=== PATIENT | female | born 1960 | race Caucasian/White ===

== ENCOUNTER 2025-07-03 18:43 | Emergency (ER) | payer BC, MEDICARE, SELFPAY ==
--- OUTSIDE RECORDS SUMMARY | 2025-07-03 18:54 | XMS_ITS | Encounter Summary ---
Author Organization [facility] Healthcare Address [address] [place] [address] Care Team Providers Care Building Custodian Name Role Phone Lloyd Powell MD Primary Care Provider +1- [phone] Bing Gupta RN Unavailable Unavailab le Reason for Visit * Reason Onset Date Comments Prior Auth 08/09/2019 Pregabalin 200mg Approved Encounter Details Date Type Department Care Team (Late st Contact Info) Description 08/09/2019 Telephone [facility] [place] [facility] [address] [facility] [address] [place] [address] Chon Ni MD [address] [facility] [phone] [place] [address] Prior Auth (Pregabalin 200mg Approved) Social History Tobacco Use Types Packs/Day Years Used Date Smoking Tobacco: Never Smokeless Tobacco: Never Alcohol Use Standard Drinks/Week Comments Not Currently 0 (1 standard drink = 0.6 oz pur e alcohol) Comments No Sex and Gender Information Value Date Recorded Sex Assigned at Not on file Legal Sex Female 11:41 PM FACTORY HELPER Gender Identity Female 12/29/2021 2:47 PM FACTORY HELPER Sexual Orientation Straight 12/29/2021 2: 47 PM FACTORY HELPER documented as of this encounter Plan of Treatment Not on file documented as of this encounter Goals Goal Patient Goal Type Associated Problems Recent Progress Patient-Stated? Author CCM Chronic Pain Care Plan Chronic Care Management Worsening( 3:17 PM CDT) No Anabel Rosas NP Note: Problem: Chronic Pain Goals: 1. Minimize further functional decline 2. Maximize quality of life 3. Control pain Strategies: - Activity/exercise program recommendation - Conservative stepwise pain medicine strategy with multi-disciplinary approach - Recommend healthy lifestyle strategies and compensatory methods as needed documented as of this encounter Visit Diagnoses Not on filedocumented in this encounter Care Teams Building Custodian Relationship Specialty Start Date End Date Lloyd Powell MD [facility] [place] [address] PCP - General 10/20/17 Bing Gupta, RN Registered Nurse 12/06/19 documented as of this encounter
--- OUTSIDE RECORDS SUMMARY | 2025-07-03 18:54 | XMS_ITS | Encounter Summary ---
Author Organization [facility] Healthcare Address [address] [place] [address] Care Team Providers Care Insurance Follow Up Rep Name Role Phone Lloyd Powell MD Primary Care Provider +1- [phone] Bing Gupta RN Unavailable Unavailab le Encounter Details Date Type Department Care Team (Late st Contact Info) Description 03/10/2022 Telephone [facility] [place] [facility] [address] [facility] [address] [place] [address] Chon Ni MD [address] [facility] [id number] [place] [address] Social History Tobacco Use Types Packs/Day Years Used Date Smoking Tobacco: Never Smokeless Tobacco: Never Alcohol Use Standard Drinks/Week Comments Not Currently 0 (1 standard drink = 0.6 oz pur e alcohol) AUDIT-C Answer Date Recorded Q1: How often do you have a drink containing alc ohol? Never 10/14/2021 Average Number of Drinks Not on file 021 Frequency of Binge Drinking Not on file 06/2021 Comments No Sex and Gender Information Value Date Recorded Sex Assigned at Not on file Legal Sex Female 11:41 PM SALES REPRESENTATIVE JEWELRY Gender Identity Female 12/29/2021 2:47 PM SALES REPRESENTATIVE JEWELRY Sexual Orientation Straight 12/29/2021 2: 47 PM SALES REPRESENTATIVE JEWELRY documented as of this encounter Plan of [...] on filedocumented in this encounter Care Teams Insurance Follow Up Rep Relationship Specialty Start Date End Date Lloyd Powell MD [address] [place] [address] [place] [address] PCP - General 10/20/17 Bing Gupta, RN Registered Nurse 12/06/19 documented as of this encounter
--- OUTSIDE RECORDS SUMMARY | 2025-07-03 18:54 | XMS_ITS | Encounter Summary ---
Author Organization [facility] Healthcare Address [address] [place] [address] Care Team Providers Care Head Soft Sugar Operator Name Role Phone Lloyd Powell MD Primary Care Provider +1- [phone] Bing Gupta RN Unavailable Unavailab le Reason for Visit * Reason Onset Date Comments Med Refill 02/17/2022 Encounter Details Date Type Department Care Team (Late st Contact Info) Description 02/17/2022 Telephone [facility] [place] [facility] [address] [facility] [address] [place] [address] Chon Ni MD [address] [facility] [phone] [place] [address] Med Refill Social History Tobacco Use Types Packs/Day Years [...] on file 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
--- OUTSIDE RECORDS SUMMARY | 2025-07-03 18:54 | XMS_ITS | Encounter Summary ---
Author Organization [facility] Healthcare Address [address] [place] [address] Care Team Providers Care Sales Planning Manager Name Role Phone Lloyd Powell MD Primary Care Provider +1- [phone] Bing Gupta RN Unavailable Unavailab le Reason for Visit * Reason Onset Date Comments Prior Auth 11/06/2019 Hydromorphone 2m g Encounter Details Date Type Department Care Team (Late st Contact Info) Description 11/06/2019 Telephone [facility] [place] [facility] [address] [facility] [address] [place] [address] Chon Ni MD [address] [facility] [address] [facility] [phone] [place] [address] Prior Auth (Hydromorphone 2mg) Social History Tobacco Use Types Packs/Day Years Used Date Smoking Tobacco: Never Smokeless Tobacco: Never Alcohol Use Standard Drinks/Week Comments Not Currently 0 (1 standard drink = 0.6 oz pur e alcohol) Comments No Sex and Gender Information Value Date Recorded Sex Assigned at Not on file Legal Sex Female 11:41 PM JEWELRY SALES Gender Identity Female 12/29/2021 2:47 PM JEWELRY SALES Sexual Orientation Straight 12/29/2021 2: 47 PM JEWELRY SALES documented as of this encounter Plan of [...] on filedocumented in this encounter Care Teams Sales Planning Manager Relationship Specialty Start Date End Date Lloyd Powell MD [address] [place] [address] [address] [place], [place] [id number] PCP - General 10/20/17 Bing Gupta, RN Registered Nurse 12/06/19 documented as of this encounter
--- OUTSIDE RECORDS SUMMARY | 2025-07-03 18:55 | XMS_ITS | Clinical Summary ---
Author Organization [facility] Address [address] [place] [address] Care Team Providers Care Policy Change Clerk Name Role Phone Lloyd Powell MD Primary Care Provider [phone] Bing Gupta RN Unavailable Unavailab le Allergies Active Allergy Reactions Criticality Noted Date Comments Amoxicillin Stomach upset Reaction: GI upset, Ampicillin Stomach upset Reaction: GI upset, Levofloxacin Stomach upset Low 04/01/2020 Reaction: GI upset, Note: Imported from external source. Penicillins Hives High Reaction: Hives, Medications traZODone (DESYREL) 50 mg tabletIndications: usually takes 50 mg, occasionally takes up to 300 mg (6) every evening Take 6 tablets (300 mg total) by mouth nightly Active simvastatin (ZOCOR) 40 mg tablet daily. Active chlordiazePOXIDE (LIBRIUM) 10 mg capsule 1 tab BID Active acetaminophen (TYLENOL) 500 mg tablet as needed Active valACYclovir (VALTREX) 500 mg tablet PRN Herpes 4 05/22/20 18 Active buPROPion XL (WELLBUTRIN XL) 300 mg 24 hr tablet bupropion hydrochloride er (xl) 300 mg tb24 Active buPROPion XL (WELLBUTRIN XL) 150 mg 24 hr tablet bupropion hydrochloride er (xl) 150 mg tb24 Active naloxone (NARCAN) 4 mg/actuation spray,non-aerosol 02/13/20 23 Active losartan-hydroCHLO ROthiazide (HYZAAR) 100-12.5 mg per tablet losartan 100 mg-hydrochloroth iazide 12.5 mg tablet TAKE 1 TABLET BY MOUTH EVERY DAY Active pregabalin (LYRICA) 200 mg capsuleIndications :Neuralgia Take 1 capsule (200 mg total) by mouth 3 (three) times a day 90 capsule 5 01/22/[address] (CYMBALTA) 30 mg capsuleIndications :Anxiety with Depression,Chronic Musculoskeletal Pain,Neuropathic Pain Take 2 capsules (60 mg total) by mouth daily 180 capsule 2 01/23/20 25 Active levomefolate calcium 15 mg tablet Take 1 tablet by mouth daily 03/21/20 25 Active vitamin b complex tablet Take 1 tablet by mouth daily Active nystatin powderIndications: cutaneous candidiasis Apply topically 4 (four) times a day 15 g 3 05/23/20 25 026 Active HYDROmorphone (DILAUDID) 2 mg tabletIndications: severe chronic pain requiring long-term opioid treatment Take 1 tablet (2 mg total) by mouth 3 (three) times a day as needed for pain 90 tablet 06/04/20 25 Active HYDROmorphone (DILAUDID) 2 mg tabletIndications: severe chronic pain requiring long-term opioid treatment Take 1 tablet (2 mg total) by mouth 3 (three) times a day as needed for pain 90 tablet 05/06/20 25 025 Disconti nued(Reo rder) Active Problems Problem Noted Date Diagnosed Date Anxiety 03/06/2025 Tremor 11/29/2024 Spondylosis of lumbar region without myelopathy or radiculopathy 01/31/2024 Infection of tooth 09/11/2023 Menorrhagia 07/18/2023 Vaginitis 07/18/2023 Malignant essential hypertension 04/05/2023 Ilioinguinal neuralgia of right side 01/18/2023 Lumbago 11/05/2021 Right lower quadrant pain 08/14/2021 Carpal tunnel syndrome on right 03/05/2020 Symptoms involving urinary system 08/16/2019 Suprapubic pain 08/16/2019 Left lower quadrant pain 08/16/2019 Perimenopausal disorder 08/16/2019 Menopausal flushing 08/16/2019 Genital herpes simplex 08/16/2019 Depressive disorder 08/16/2019 Alopecia 08/16/2019 Chronic pelvic pain in female 08/16/2019 Encounter for specialized medical examination 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 Ni 2004 - based on failed medications Oral morphine equivalent: 24 mg per day Benzo: librium 10 mg BID Other: wellbutrin 450 mg , sunosi 75 mg prn , she has mild cognitive impairment - Storage: she is told to lock up Plan: 2 months - encourage gradual opioid dose reduction as possible Urine drug screen [facility] 03/25/17 - consistent with prescribed hydromorphone (prescribed chlordiazepoxide) Urine drug screen [facility] 09/01/18 - consistent with prescribed hydromorphone (prescribed chlordiazepoxide) oxidant screen positive. Urine Drug screen [facility] 01/03/19 - consistent with prescribed hydromorphone, benzodiazepine screen negative/confirmed (oxidants negative) Urine Drug Screen [facility] 12/06/19 - consistent with prescribed hydromorphone, Benzodiazepines positive -rx'd librium Urine Drug Screen [facility] 01/27/21 - consistent with prescribed hydromorphone, Benzodiazepines positive -rx'd librium Urine Drug Screen [facility] 08/24/22 - consistent with prescribed hydromorphone, Benzodiazepines positive -rx'd librium Urine drug screen [facility] 07/21/23 - consistent with prescribed hydromorphone , Benzodiazepine positive - rx'd librium Urine drug screen [facility] 05/15/24 - confirmed hydromorphone , amphetamines negative , confirmed benzo. Urine drug screen [facility] 05/23/25 - confirmed hydromorphone , amphetamine negative . Benzo screen positive as expected she takes librium Sciatica of right side 01/03/2019 Displacement of lumbar intervertebral disc 01/03 Kidney stone 11/22/2018 Medication monitoring encounter 05/25/2018 Psychophysiological insomnia 05/19/2017 Meralgia paresthetica 04/28/2013 Pain in pelvis 04/28/2013 Hyperlipidemia 01/17/2013 Migraine headache 01/17/2013 Chronic pain 01/10/2013 Generalized anxiety disorder 01/10/2013 Radiculopathy 01/10/2013 Major depression, recurrent 01/10/2013 Peripheral neuropathy 01/10/2013 07/21/2023 History of anxiety 11/25/2009 Neuralgia 11/25/2009 Recurrent major depressive disorder 11/25/2009 Resolved Problems Problem Noted Date Diagnosed Date Resolved Date H/O dizziness 05/25/2018 05/25/2018 Encounters Date Type Department Care Team Description 05/23/2025 5:26 PM CDT - 05/23/2025 11:59 PM CDT Hospital Encounter [facility] [address] [place] [address] Chronic use of opiate drug for therapeutic purpose Discharge Disposition: Discharge to home or self care 05/23/2025 3:00 PM CDT - 05/23/2025 11:59 PM CDT Hospital Encounter [facility] [address] [place] [address] [facility] [address] [place] [address] Reanna Avilse NP Chronic use of opiate drug for therapeutic purpose (Primary Dx); Ilioinguinal neuralgia of right side; Left lower quadrant pain Discharge Disposition: Discharge to home or self care from Last 3 Months Immunizations Immunization Administration Dates Next Due Tdap 08/27/2015 Surgical History Surgery Date Site/Laterality Comments [place] CHOLECYSTECTOMY Cholecystectomy - (Added by TW Conv) [place] EXC CYST/ABERRANT BREAST TISSUE OPEN 1/> LESION Breast Surgery Lumpectomy - (Added by TW Conv) RHIZOTOMY Rhizotomy - (Added by TW Conv) WI DILATION & CURETTAGE DX&/ THER NONOBSTETRIC Dilation And Curettage - (Added by TW Conv) COLONOSCOPY 10/07/2003 Medical History Medical History Date Comments Hyperlipidemia Chronic pain Depression Extremity pain Carpal tunnel syndrome Fever Groin pain, right Joint pain Anxiety Bipolar disorder Abdominal pain Groin pain, chronic, right Low back pain Dental decay Family History Medical History Relation Name Comments Heart disease Father Family history of cardiac disorder - (Added by TW Conv) Asthma Mother COPD Mother Relation Name Status Comments Father Alive Mother Social History Tobacco Use Types Packs/Day Years Used Date Smoking Tobacco: Never Smokeless Tobacco: Never Tobacco Cessation:Counseling Given: Not Answered Alcohol Use Standard Drinks/Week Comments Not Currently 0 (1 standard drink = 0.6 oz pur e alcohol) AUDIT-C Answer Date Recorded Q1: How often do you have a drink containing alcohol? Never 05/23/2025 Q2: How many drinks containi ng alcohol do you have on a typical day when you are drinking? Patient does not drink Q3: How often do you have si x or more drinks on one occasion? Never 05/23/2025 Comments No Sex and Gender Information Value Date Recorded Sex Assigned at Not on file Legal Sex Female 11:41 PM BOOM [employer]OSS Gender Identity Female 12/29/2021 2:47 PM BOOM [employer]OSS Sexual Orientation Straight 12/29/2021 2: 47 PM [employer]OM [employer]OSS Obstetrics History Last Filed Vital Signs Vital Sign Reading Time Taken Comments Blood Pressure 143/78 05/23/2025 3:08 PM CDT 92 Pulse 74 05/23/2025 3:08 PM CDT Temperature 36.4 C (97.5 F) 05/23/2025 3:08 PM CDT Respiratory Rate 14 05/23/2025 3:08 PM CDT Oxygen Saturation 94% 05/23/2025 3:08 PM CDT Inhaled Oxygen Concentration - - Weight 94.3 kg (208 lb) 05/23/2025 3:08 PM CDT Height 170.2 cm (5' 7) 05/23/2025 3:08 PM CDT Body Mass Index 32.58 05/23/2025 3:08 PM CDT Plan of Treatment Health Maintenance Due Date Last Done Comments Breast Cancer Screening-Mammogram 1960 Cervical Cancer Screening 1960 Hepatitis C Screening 1960 Hepatitis B Screening 1979 Regular Well Visit/Exam 18-64 1979 Zoster Vaccine (1 of 2) 2011 Depression Screening 05/25/2019 05/25/2018 Influenza Vaccine (#1) 2025 DTaP/Tdap/Td Vaccine (2 - Td or Tdap) 08/27/2025 08/27/2015 Colon Cancer Screening-Colonoscopy 05/03/2028 05/03/2018 Colon Cancer Screening-CT Colonography Discontinued 05/03/2018 Colon Cancer Screening-DNA Stool Discontinued 05/03/20 18 Colon Cancer Screening-FIT Discontinued 05/03/2018 Colon Cancer Screening-Sigmoidoscopy Discontinued 05/03/2018 Pneumococcal vaccine <65 Aged Out No longer eligible based on patient's age to complete this topic Goals Goal Patient Goal Type Associated Problems Recent Progress Patient-Stated? Author CCM Chronic Pain Care Plan Chronic Care Management Worsening( 3:17 PM CDT) No Anabel Rosas, DIRECTOR FURNITURE Note: Problem: Chronic Pain Goals: 1. Minimize further functional decline 2. Maximize quality of life 3. Control pain Strategies: - Activity/exercise program recommendation - Conservative stepwise pain medicine strategy with multi-disciplinary approach - Recommend healthy lifestyle strategies and compensatory methods as needed Procedures Procedure Name Priority Date/Time Associated Diagnosis Comments AMPHETAMINE, URINE, CONFIRMATION Routine 05/23/2025 12:28 PM CDT Chronic use of opiate drug for therapeutic purpose TARGET OPIOID SCREEN BY FAMILY AND CONSUMER EDUCATION TEACHER Routine 05/23/2025 12:28 PM CDT Chronic use of opiate drug for therapeutic purpose DRUGS OF ABUSE SCREEN, URINE WITH REFLEX CONFIRMATION Routine 05/23/2025 12:28 PM CDT Chronic use of opiate drug for therapeutic purpose PAIN MANAGEMENT PROFILE Routine 05/23/2025 12:28 PM CDT Chronic use of opiate drug for therapeutic purpose COLONOSCOPY 05/03/2018 11:42 AM CDT from Last 3 Months or Most Recently Relevant to Health Maintenance Results * Targeted Opioid Screen, Ur (05/23/2025 12:28 PM CDT) Pain mgt 6-Acetylmorphine, Ur Not Detected CutOff 10 ng/mL Pain mgt Buprenorphine, Ur Not Detected CutOff 5 ng/[facility] Pain mgt Buprenorphine metabolite (Norbuprenorphine), Ur Not Detected CutOff 5 ng/mL [facility] Pain mgt Codeine, Ur Not Detected CutOff 25 ng/mL [facility] Pain mgt Hydrocodone, Ur Not Detected CutOff 25 ng/mL [facility] Pain mgt Hydromorphone, Ur Detected CutOff 25 ng/mL [facility] Pain mgt Methadone, Ur Not Detected CutOff 25 ng/mL [facility] Pain mgt Methadone Metabolite (EDDP), Ur Not Detected CutOff 25 ng/mL [facility] Pain mgt Morphine, Ur Not Detected CutOff 25 ng/mL [facility] Pain mgt Oxycodone, Ur Not Detected CutOff 25 ng/mL [facility] Pain mgt Oxymorphone, Ur Not Detected CutOff 25 ng/mL [facility] Pain mgt Tapentadol, Ur Not Detected CutOff 25 ng/mL [facility] Pain mgt Tramadol, Ur Not Detected CutOff 25 ng/mL [facility] Pain mgt Tramadol metabolite (O-desmethyltramado l), Ur Not Detected CutOff 25 ng/mL [facility] Comment: Interpretive Data This test only detects free, unconjugated drugs. The absence of expected drug(s) and/or metabolite(s) may indicate non-compliance, inappropriate timing of specimen collection relative to the time of dosing, variability in absorption, diluted or adulterated urine, or other testing limitations. Questions concerning interpretation should be directed to the laboratory. The results of this test are to be used only for medical purposes and are not suitable for forensic use. This test was developed and its performance characteristics determined by [facility]. It has not been cleared or approved by the U.S. Food and Drug Administration. Current interpretive data was last revised 19. Pain mgt Naloxone, ur Not Detected cutoff 20 ng/ml [facility] Urine 05/23/2025 12:2 8 PM CDT 05/23/2025 6:00 PM CDT us Reanna Aviles NP LAB URINE ORDERABLES Final Re sult [facility] Department [place] [address] * (ABNORMAL) Drugs of Abuse Screen, Urine with Reflex Confirmation (05/23/2025 12:28 PM CDT) [facility] Amphetamine, ur Screen Positive, presumptive (A) CutOff 500ng/mL Comment: Interpretive Data - Amphetamines: Samples containing greater than 500 ng/mL d-methamphetamine or other cross-reacting amphetamine compounds are reported as positive. Amphetamine immunoassays are subject to significant false positive rates due to cross-reactivity of non-amphetamine drugs. Confirmatory testing required for definitive results. Current Interpretive Data was last reviewed 2023. Barbiturates, ur Not Detected CutOff 200ng/mL [facility] Comment: Interpretive Data - Barbiturates: Samples containing greater than 200 ng/mL secobarbital or other cross-reacting barbiturate compounds are reported as positive. False positive and false negative results are possible. Confirmatory testing required for definitive results. Current Interpretive Data was last reviewed 2023. Benzodiazepines, ur Screen Positive, presumptive (A) CutOff 100ng/mL [facility] Comment: Interpretive Data - Benzodiazepines: Samples containing greater than 100 ng/mL nordiazepam or other cross-reacting compounds are reported as positive. False positive and false negative results are possible. Confirmatory testing required for definitive results. Current Interpretive Data was last reviewed 2023. Cannabinoids, ur Not Detected CutOff 50 ng/mL [facility] Comment: Interpretive Data - Cannabinoids: Samples containing greater than 50 ng/mL delta-9 THC -COOH or other cross- reacting compounds are reported as positive. False positive and false negative results are possible. Confirmatory testing required for definitive results. Current Interpretive Data was last reviewed 2023. Cocaine, ur Not Detected CutOff 150ng/mL [facility] Comment: Interpretive Data - Cocaine: Samples containing greater than 150 ng/mL benzoylecgonine or other cross- reacting compounds are reported as positive. False positive and false negative results are possible. Confirmatory testing required for definitive results. Current Interpretive Data was last reviewed 2023. Fentanyl, Ur Not Detected CutOff 5 ng/mL [facility] Comment: Interpretive Data - Fentanyl: Samples containing greater than 5 ng/mL norfentanyl, fentanyl, or other cross-reacting fentanyl compounds are reported as positive. False positive and false negative results are possible. Confirmatory testing required for definitive results. Current Interpretive Data was last reviewed 2024. Methadone, ur Not Detected CutOff 300ng/mL [facility] Comment: Interpretive Data - Methadone: Samples containing greater than 300 ng/mL d,l-methadone or other cross-reacting compounds are reported as positive. False positive and false negative results are possible. Confirmatory testing required for definitive results. Current Interpretive Data was last reviewed 2023. Opiates, ur Screen Positive, presumptive (A) CutOff 300ng/mL [facility] Comment: Interpretive Data - Opiates: Samples containing greater than 300 ng/mL morphine or other cross-reacting compounds are reported as positive. False positive and false negative results are possible. Confirmatory testing required for definitive results. Current Interpretive Data was last reviewed 2023. Oxycodone, ur Not Detected CutOff 100ng/mL [facility] Comment: Interpretive Data - Oxycodone: Samples containing greater than 100 ng/mL oxycodone or other cross-reacting compounds are reported as positive. False positive and false negative results are possible. Confirmatory testing required for definitive results. Current Interpretive Data was last reviewed 2023. Phencyclidine, ur Not Detected CutOff 25 ng/mL [facility] Comment: Interpretive Data - Phencyclidine: Samples containing greater than 25 ng/mL phencyclidine or other cross-reacting compounds are reported as positive. False positive and false negative results are possible. Confirmatory testing required for definitive results. Current Interpretive Data was last reviewed 2023. Urine Creatinine 298 mg/dL [facility] Comment: Interpretive Data Urine Creatinine: < 10 mg/dL is extremely dilute = or > 10 but < 20 mg/dL is dilute = or > 20 mg/dL is normal Current Interpretive Data was last revised on 2018. Urine 05/23/2025 12:2 8 PM CDT 05/23/2025 6:00 PM CDT Narrative [facility] - 05/23/2025 6:54 PM CDT Drug of Abuse screening is performed by immunoassay for medical purposes only. This is not to be used for Pain Management purposes. If Detected, confirmation testing will be performed for Amphetamines, Cocaine, Fentanyl, Methadone, Opiates, Oxycodone or Phencyclidine. us Reanna Aviles NP LAB URINE ORDERABLES Final Re sult [facility] Department [place] [address] * Amphetamine Confirmation, Urine (05/23/2025 12:28 PM CDT) Amphetamine Conf, Ur Does Not Confirm CutOff 150ng/mL Methamphetamine Conf, Ur Does Not Confirm CutOff 150ng/mL [facility] MDA Conf, Ur Does Not Confirm CutOff 150ng/mL [facility] MDMA Conf, Ur Does Not Confirm CutOff 50 ng/mL [facility] MDEA Conf, Ur Does Not Confirm CutOff 150ng/mL [facility] MBDB Conf, Ur Does Not Confirm CutOff 150ng/mL [facility] Comment: Interpretive Data This test detects the presence or absence of drug compounds using LC Tandem mass spectrometry. While this test is highly specific, false positive and false negative results may occur in very rare circumstances. Contact the laboratory for consultation, if needed. Performance characteristics were determined by the [facility] in a manner consistent with CLIA requirement and has not been cleared or approved by the U.S. Food and Drug Administration. Current interpretive data was last revised on 2021. Urine 05/23/2025 12:2 8 PM CDT 05/23/2025 6:22 PM CDT Reanna Aviles NP LAB URINE ORDERABLES Final Re sult [facility] Department [place] [address] * COLONOSCOPY (05/03/2018 11:42 AM CDT) Anatomical Region Laterality Modality Other Narrative Procedure Note Quincy Bowens MD - 05/03/2018 11:42 AM CDT [facility] Patient Name: Caitlin Rosales Procedure Date: 05/03/2018 11:42 AM Date of : 1960 Admit Type: Outpatient Age: 57 Gender: Female Attending MD: Quincy Bowens MD Room: [facility] ENDOSCOPY ROOM 2 Note Status: Finalized Patient Profile: 57 WF, father and grandfather had colon cancer.patient has chronic RLQ and right groin pain. Procedure: Colonoscopy Indications: Screening in patient at increased risk: Familyhistory of 1st-degree relative with colorectal cancer, Last colonoscopy: October 2003 Referring MD: Lloyd Powell MD Providers: Quincy Bowens MD Impression: - The cecum is normal. - The entire examined colon is normal. - Internal hemorrhoids. - No specimens collected. Recommendation: - Continue present medications. - Repeat colonoscopy in 5 years for screeningpurposes. Medicines: Monitored Anesthesia Care Complications: No immediate complications. Estimated Blood Loss: Estimated blood loss: none. Procedure: Pre-Anesthesia Assessment: - Prior to the procedure, a History and Physical was performed, and patient medications and allergieswere reviewed. The patient's tolerance of previous anesthesia was also reviewed. The risks and benefitsof the procedure and the sedation options and riskswere discussed with the patient. All questions were answered, and informed consent was obtained. Prior Anticoagulants: The patient has taken no previous anticoagulant or antiplatelet agents. ASA Grade Assessment: II - A patient with mild systemicdisease. After reviewing the risks and benefits, the patientwas deemed in satisfactory condition to undergo the procedure. The benefits, risks and alternatives of theprocedure and sedation were discussed and informed consent was obtained. All questions were answered. Please referto the signed informed consent document in the medical record. The scope was passed under direct vision.The Pediatric Colonoscope PCF-H190L [id number] was introduced through the anus and advanced to the the cecum, identified by appendiceal orifice andileocecal valve. The colonoscopy was performed without difficulty. The patient tolerated the procedurewell. The quality of the bowel preparation wasexcellent. Findings: The perianal and digital rectal examinations were normal. The cecum appeared normal. The colon (entire examined portion) appeared normal. No polyps and no mass lesions. No inflammatory changes noted. Internal hemorrhoids were found during retroflexion. The hemorrhoids were small. Electronically signed by Quincy Bowens M.D. Quincy Bowens MD 05/03/2018 1:01:29 PM Number of Addenda: 0 Note Initiated On: 05/03/2018 11:42 AM Procedure Code(s): --- Professional --- G0105, Colorectal cancer screening; colonoscopy on individual at high risk Diagnosis Code(s): --- Professional --- Z80.0, Family history of malignant neoplasm of digestive organs K64.8, Other hemorrhoids CPT copyright 2017 [employer] [place] [employer]. All rights reserved. The codes documented in this report are preliminary and upon medical biller/coder reviewmay be revised to meet current compliance requirements. Recognized by the [place] [employer] for promoting quality in endoscopy Quincy Bowens MD ENDOSCOPY PROCEDURES Final Result from Last 3 Months or Most Recently Relevant to Health Maintenance Insurance MEDICARE [employer] [place] MEDICARE MEDICARE MEDICARE [facility] Address: [address] [address] [place] [address] [facility] [employer] [facility] H[facility]/PPO Address[address] [address] [place] [address] [facility]/PPO Address: [address] [address] [place] [address] MEDICARE [employer] [facility] Advance Directives For more information, please contact: [phone] * Full Code (Latest Code Status on File) Date Activated Date Inactivated Comments 05/03/2018 10:03 AM 05/03/2018 3:52 PM Care Teams Policy Change Clerk Relationship Specialty Start Date End Date Lloyd Powell MD [facility] [place] [address] PCP - General 10/20/17 Bing Gupta, RN Registered Nurse 12/06/19
--- OUTSIDE RECORDS SUMMARY | 2025-07-03 18:55 | XMS_ITS | Encounter Summary ---
Author Organization [facility] Healthcare Address [address] [place] [address] Care Team Providers Care Python Developer Name Role Phone Lloyd Powell MD Primary Care Provider [phone] Bing Gupta RN Unavailable Unavailab le Encounter Details Date Type Department Care Team (Late st Contact Info) Description 01/04/2025 Telephone [facility] [address] [facility] [address] [place] [address] Chon Ni MD [address] [facility] [id number] [place] [address] Social History Tobacco Use Types Packs/Day Years Used Date Smoking Tobacco: Never Smokeless Tobacco: Never Alcohol Use Standard Drinks/Week Comments Not Currently 0 (1 standard drink = 0.6 oz pur e alcohol) AUDIT-C Answer Date Recorded Q1: How often do you have a drink containing alc ohol? Never 01/31/2024 Average Number of Drinks Not on file 024 Frequency of Binge Drinking Not on file 01/06 Comments No Sex and Gender Information Value Date Recorded Sex Assigned at Not on file Legal Sex Female 11:41 PM [employer] PHP DEVELOPER Gender Identity Female 12/29/2021 2:47 PM [employer] PHP DEVELOPER Sexual Orientation Straight 12/29/2021 2: 47 PM [employer]UP[employer] PHP DEVELOPER documented as of this encounter Plan of [...] on filedocumented in this encounter Care Teams Python Developer Relationship Specialty Start Date End Date Lloyd Powell MD [address] [place] [address] [place] [address] PCP - General 10/20/17 Bing Gupta, RN Registered Nurse 12/06/19 documented as of this encounter
--- OUTSIDE RECORDS SUMMARY | 2025-07-03 18:55 | XMS_ITS | Patient Health Record ---
Author Organization [facility] Address [address] [facility] [address] [facility] [address] [place] [address] Care Team Providers Care Correspondence School Instructor Name Role Phone Stefano Linares Unavailable [phone] Reason For Referral No Information Plan Of Treatment No Information
--- NOTE | 2025-07-03 18:57 | ED_ITS ---
HPI - Skin/Abscess/Foreign Bdy General Chief complaint: Skin/Abscess/Foreign Body Stated complaint: Bumps all over/itching Time Seen by Provider: 07/03/25 18:57 Source: patient Mode of arrival: ambulatory Limitations: no limitations History of Present Illness HPI narrative: 64 yo F presents with itchy rash to bilateral legs, arms and trunk. Started to legs after walking in [place] 4 days ago. Applying calamine with no relief. Pt states itching is severe. All systems reviewed and negative except as noted above. Related Data Home Medications ?Medication ?Instructions ?Recorded ?Confirmed ?Last Taken ?Type amlodipine 10 mg tablet mg 07/03/25 Unknown History bupropion HCl 150 mg 24 hr tablet, mg PO 07/03/25 Unk nown History extended release bupropion HCl 300 mg 24 hr tablet, mg PO 07/03/25 Unk nown History extended release chlordiazepoxide HCl 10 mg capsule mg 07/03/25 Unknow n History duloxetine 30 mg capsule,delayed mg PO 07/03/25 Unkno wn History release estradiol 0.01% (0.1 mg/gram) vaginal 07/03/25 Unknow n History vaginal cream hydromorphone 2 mg tablet mg 07/03/25 Unknown History levomefolate calcium 15 mg tablet mg PO 07/03/25 Unkn own History losartan 100 tablet 07/03/25 Unknown His tory mg-hydrochlorothiazide 12.5 mg tablet pregabalin 200 mg capsule mg 07/03/25 Unknown History simvastatin 40 mg tablet mg 07/03/25 Unknown History trazodone 50 mg tablet mg 07/03/25 Unknown History Allergies Allergy/AdvReac Type Severity Reaction Status Date / Time hydrocodone Allergy Severe HEADACHE, Unverified 07/03/25 18:49 ANXIETY hydroxyzine Allergy Severe SEDATED, Unverified 07/03/25 18:49 GOOFY, OUT OF CONTROL FEELING Penicillins Allergy Severe RASH, ABD Unverified 07/03/25 18:49 PAIN Quinolones Allergy Severe ANXIETY Unverified 07/03/25 18:49 ketorolac Allergy Mild IN Unverified 02/19/09 13:08 COMBINATION WITH VISTARIL, STILL FELT PAIN PMFSH Comments At time of signature, agree with nursing past medical, surgical, social and family history. There is no relevant family history pertinent to the presenting complaint. Exam Narrative: GENERAL: This is a well-nourished, well-developed patient, in no apparent distress. HEAD: normocephalic, atraumatic. EYES: PERRL. Sclera clear/white. Vision is grossly intact. EARS: External ears normal NOSE: External nose normal NECK: Neck supple, non-tender without lymphadenopathy, masses or thyromegaly. CARDIOVASCULAR: Regular rate and rhythm without murmurs, gallops, or rubs. RESPIRATORY: Clear to auscultation. Breath sounds equal bilaterally. No wheezes, rales, or rhonchi. SKIN: warm, Dry, intact with good texture and turgor. erythematous scabby vesicular rash to bilateral legs, arms and trunk NEURO: awake, alert, and oriented to person, place and time. There were no obvious focal neurologic abnormalities. EXTREMITIES: No joint tenderness, effusion, or edema noted. Course Course Level of Care: Express Care Visit Vital Signs Vital signs: Reviewed MDM - Skin/Abscess/Foreign Bdy MDM Narrative Medical decision making narrative: will treat poison naye rash with prednisone and triamcinolone. pt agrees with plan of care. Differential Diagnosis Differential diagnosis: Likely eczema, insect bites and contact dermatitis Discharge Plan Discharge Clinical Impression: Dermatitis due to plants, including poison naye, sumac, and oak Patient Disposition: Home Condition: Stable Instructions: Poison Naye (ED) Additional Instructions: Take medications as prescribed to treat poison naye. Avoid applying triamcinolone steroid cream to face. Follow-up with your primary care physician if not improving. Patient Language: Upper Sorbian Prescriptions: New cetirizine 10 mg capsule 10 mg PO DAILY Qty: 30 0RF prednisone 10 mg tablet See Rx Instructions .ROUTE .COMPLEX Qty: 42 0RF Rx Instructions: Take 6 tablets for 2 days Take 5 tablets for 2 days Take 4 tablets for 2 days Take 3 tablets for 2 days Take 2 tablets for 2 days Take 1 tablet for 2 days triamcinolone acetonide 0.1 % cream 1 applic topical BID Qty: 30 0RF No Action trazodone 50 mg tablet simvastatin 40 mg tablet hydromorphone 2 mg tablet amlodipine 10 mg tablet chlordiazepoxide HCl 10 mg capsule estradiol 0.01 % (0.1 mg/gram) cream VAGINAL bupropion HCl 300 mg tablet extended release 24 hr PO bupropion HCl 150 mg tablet extended release 24 hr PO duloxetine 30 mg capsule,delayed release(DR/EC) PO pregabalin 200 mg capsule losartan-hydrochlorothiazide 100-12.5 mg tablet levomefolate calcium 15 mg tablet PO Follow-up/Referrals: Dario,Otoniel Goetz MD [Primary Care Provider, Unknown] Time of Disposition: 19:08
[2025-07-03 19:02] VITALS: BP 115/95; PULSE 81; RESP 18; TEMP 36.9; O2SAT 96
== END 2025-07-03 19:18 | disposition home or self-care (01) ==
PROVIDERS: Emergency Provider Nurse Practitioner Family; PCP Internal Medicine
DX: L23.7 Allergic contact dermatitis due to plants, except food (principal); Z79.899 Other long term (current) drug therapy; Z79.891 Long term (current) use of opiate analgesic
CPT/HCPCS: 99203; G0463